=== PATIENT | male | born 1990 | race African-American/Black ===

== ENCOUNTER 2021-10-23 18:09 | Emergency (ER) | payer OTHER ==
[~2021-10-23] VITALS: Ht 190.5 cm; Wt 127.0 kg
[2021-10-23] MEDS ORDERED: PREDNISONE 20 M20 MG PO (20:16)
[2021-10-23] MEDS ORDERED: BENADRYL25 MG PO (20:16)
[2021-10-23 20:32] VITALS: BP 117/50
[2021-10-24] MEDS ORDERED: CEPHALEXIN500 MG PO (16:40)
== END 2021-10-23 20:34 | disposition home or self-care (01) ==
LOC: ER 18:09
DX: R22.0 Localized swelling, mass and lump, head (principal); T50.995A Adverse effect of other drugs, medicaments and biological substances, initial encounter; Y92.89 Other specified places as the place of occurrence of the external cause

== ENCOUNTER 2021-10-24 15:21 | Emergency (ER) | payer OTHER ==
[~2021-10-24] VITALS: Ht 190.5 cm; Wt 127.0 kg
[~2021-10-24 15:21] MED LIST: BENADRYL25 MG PO; PREDNISONE 20 M20 MG PO
[2021-10-24 15:26] VITALS: BP 139/74
[2021-10-24 16:01] LABS: BASOPHILS 0.4 % (0.0-2.0); EOSINOPHILS 0.3 % (0.0-3.0); HEMATOCRIT 40.1 % (42.0-52.0); LYMPHOCYTES 22.9 % (24.0-44.0); MCH 29.4 pg (26.0-34.0); MCHC 34.8 g/dL (28.0-37.0); MCV 84.4 fL (80.0-100.0); MONOCYTES 6.6 % (1.0-8.0); PLATELET COUNT 237 thou/uL (150-400); POLYS 69.8 % (36.0-66.0); RBC 4.75 mil/uL (4.50-6.00); RDW 13.5 % (10.5-14.5); WBC 8.6 thou/uL (4.0-11.0)
[2021-10-24 16:06] LABS: CALCIUM 9.3 mg/dL (8.5-10.1); CREATININE 1.1 mg/dL (0.7-1.3); POTASSIUM 3.9 mmol/L (3.5-5.1)
[2021-10-24] MEDS ORDERED: CEPHALEXIN500 MG PO (16:40)
== END 2021-10-24 16:49 | disposition home or self-care (01) ==
LOC: ER 15:21
PROVIDERS: Emergency Medicine
DX: T78.3XXA Angioneurotic edema, initial encounter (principal)